=== PATIENT | male | born 1940 | race Caucasian/White ===

== ENCOUNTER 2017-02-19 10:36 | Day surgery (SDC) | payer MEDICARE ==
[~2017-02-19 10:36] MED LIST: BUPIVACAINE HCL 0.75% INJ/PF (7.5 MG/1 ML) 10 ML SDV OD PRN; KETOROLAC TROMETHAMINE 0.45% 4 DROP/0.4 ML DROPERETTE OD PRN; LIDOCAINE 4% INJ/PF (40 MG/ML) 5 ML AMPUL OD PRN
[2017-02-19] MEDS ORDERED: MIDAZOLAM 2 MG/2 ML INJ ONE (10:47)
[2017-02-19] MEDS: TETRACAINE HCL 0.5% OPH SOLN 0.6 ML DROPERETTE OD PRN ×2 (11:22→11:59)
[2017-02-19] MEDS: CYCLOPENTOLATE 0.2%/PHENYLEPHRINE 1% OPH SOLN 2 ML OD PRN ×3 (11:23→11:38)
[2017-02-19] MEDS: BESIFLOXACIN HCL 0.6% OPH SUSP 5 ML BOTTLE OD PRN ×4 (11:23→12:38)
[2017-02-19] MEDS: TROPICAMIDE 1% OPH SOLN 3 ML OD PRN ×3 (11:23→11:38)
[2017-02-19] MEDS ORDERED: EPINEPHRINE INJ/PF 1 MG/1 ML AMPULE ONE (11:54)
[2017-02-19] MEDS ORDERED: CHONDR SU A NA/HYALUR INTRAOC KIT (SURGICARE) ONE (11:54)
--- NOTE | 2017-02-19 13:08 | [facility] OPERATIVE REPORT E ---
[facility] Operative Report NAME: MABEL LOMBARDO AGE: 76Y DATE OF SURGERY: ROOM: PREOPERATIVE DIAGNOSES: 1. Cataract, right eye. 2. Astigmatism, right eye. POSTOPERATIVE DIAGNOSES: 1. Cataract, right eye. 2. Astigmatism, right eye. PROCEDURE PERFORMED: Phacoemulsification with toric intraocular lens implant, right eye. SURGEON: LISSA SHIN M.D. ANESTHESIA: Topical with monitored anesthesia care. INDICATIONS OF SURGERY: Difficulty reading road signs and glare at night. Best corrected visual acuity, 20/40. DESCRIPTION OF PROCEDURE: The patient was brought to the operating room and placed in the seated position. The 0, 180 and 270 axes of the eyes were marked using a marking level. The patient was placed in the reclining and topical anesthesia was administered. This consisted of a short white pledget soaked in a solution of 4% Xylocaine mixed with 0.75% Marcaine in a 1:1 ratio. A 2 x 1 cm pledget was placed in the superior fornix and a 1 x 1 cm pledget was placed in the inferior fornix. The eye was patched shut for 5 minutes. The patch and pledgets were removed. The eye was sterilely prepped and draped in the usual manner. Lid speculum was placed in the eye. Black silk 4-0 sutures were placed around the superior and the inferior rectus muscles to be used as traction. A conjunctival peritomy was made at the 135 degree axis. Hemostasis was obtained with bipolar cautery. A posterior limbal groove was created using a crescent knife and dissected anteriorly towards the cornea. A sharp point blade was used to create a paracentesis site at the 2 o'clock position. A 2.4 mm keratome was used to enter the anterior chamber through the groove. Viscoelastic was injected in the anterior chamber. An anterior capsulotomy was performed using Utrata forceps in a capsulorrhexis fashion. Hydrodissection and hydrodelineation were performed. Phacoemulsification was performed in a pyfhjr-pnp-sotpyed technique. A total of 50 seconds of total phaco time was used. The I/A unit was used to remove residual cortex. Viscoelastic was placed in the capsular bag. Using the previously marked site as reference, the 180 degree axis was marked on the eye. Intraocular lens Model [id number], 20.0 diopters, serial number [id number] was placed in the eye and rotated within 0 degrees of final axis. The I/A unit was used to removed residual viscoelastic. The lens was rotated to the 180 degree axis and centered nicely. The wound was seen to be watertight under high and low pressure, and no sutures were placed. The 4-0 black silk sutures and lid speculum were removed. The eye was shielded after Besivance drops were placed. The patient tolerated the procedure well and was sent to the recovery room in good condition. DICTATING PHYSICIAN: LISSA SHIN M.D. [id number] [id number] PHY#: [id number] ID: [id number] JOB#: [id number] ACCT: [id number] cc:LISSA SHIN M.D. > MTDD
--- NOTE | 2017-02-19 13:13 | [facility] DISCHARGE SUMMARY E ---
[facility] Discharge Summary NAME: MABEL LOMBARDO AGE: 76Y ADMITTED: 02/19/2017 DISCHARGED: 02/19/2017 FINAL DIAGNOSES: 1. Cataract, right eye. 2. Astigmatism, right eye. HOSPITAL COURSE: The patient is a 76-year-old gentleman who underwent uneventful cataract extraction with toric intraocular lens implant, right eye, on 02/19/17. DISPOSITION: The patient was discharged to home. DISCHARGE INSTRUCTIONS: He is instructed to resume preoperative medications, take Tylenol as needed for discomfort, to keep his eye shielded, to use Besivance, Durezol, and Ilevro at 3 p.m. and 8 p.m., and to follow up in my office in 1 day. DICTATING PHYSICIAN: LISSA SHIN M.D. 5011M 1305 PHY#: [id number] ID: [id number] JOB#: [id number] ACCT: [id number] cc:LISSA SHIN M.D. >
== END 2017-02-19 13:25 | disposition home or self-care (01) ==
LOC: SC 10:36
PROVIDERS: ATTEND Ophthalmology
PROC: 08RJ3JZ Replacement of Right Lens with Synthetic Substitute, Percutaneous Approach (ICD-10-PCS; principal; 2017-02-19 12:00)
DX: H25.811 Combined forms of age-related cataract, right eye (principal); H02.132 Senile ectropion of right lower eyelid; H02.135 Senile ectropion of left lower eyelid; H52.201 Unspecified astigmatism, right eye; H35.3131 Nonexudative age-related macular degeneration, bilateral, early dry stage; H35.372 Puckering of macula, left eye; H52.4 Presbyopia; E11.9 Type 2 diabetes mellitus without complications; I10 Essential (primary) hypertension; E78.00 Pure hypercholesterolemia, unspecified; Z87.891 Personal history of nicotine dependence; Z79.899 Other long term (current) drug therapy; Z79.84 Long term (current) use of oral hypoglycemic drugs
CPT/HCPCS: 66984; 82962; V2787; J2250; J3490 ×3; A9270; J0171; 142

== ENCOUNTER 2017-03-19 08:44 | Day surgery (SDC) | payer MEDICARE ==
[~2017-03-19 08:44] MED LIST changes: -BUPIVACAINE HCL 0.75% INJ/PF (7.5 MG/1 ML) 10 ML SDV OD PRN; +BUPIVACAINE HCL 0.75% INJ/PF (7.5 MG/1 ML) 10 ML SDV OS PRN; +CHONDR SU A NA/HYALUR INTRAOC KIT (SURGICARE) ONE; +EPINEPHRINE INJ/PF 1 MG/1 ML AMPULE ONE; -KETOROLAC TROMETHAMINE 0.45% 4 DROP/0.4 ML DROPERETTE OD PRN; +KETOROLAC TROMETHAMINE 0.45% 4 DROP/0.4 ML DROPERETTE OS PRN; -LIDOCAINE 4% INJ/PF (40 MG/ML) 5 ML AMPUL OD PRN; +LIDOCAINE 4% INJ/PF (40 MG/ML) 5 ML AMPUL OS PRN; +MIDAZOLAM 2 MG/2 ML INJ ONE
[2017-03-19] MEDS: TROPICAMIDE 1% OPH SOLN 3 ML OS PRN ×3 (09:04→09:39)
[2017-03-19] MEDS: CYCLOPENTOLATE 0.2%/PHENYLEPHRINE 1% OPH SOLN 2 ML OS PRN ×3 (09:04→09:39)
[2017-03-19] MEDS: BESIFLOXACIN HCL 0.6% OPH SUSP 5 ML BOTTLE OS PRN ×4 (09:05→10:29)
[2017-03-19] MEDS: TETRACAINE HCL 0.5% OPH SOLN 0.6 ML DROPERETTE OS PRN ×2 (09:06→09:39)
--- NOTE | 2017-03-19 11:03 | [facility] OPERATIVE REPORT E ---
[facility] Operative Report NAME: MABEL LOMBARDO AGE: 76Y DATE OF SURGERY: ROOM: [facility] Operative Report PREOPERATIVE DIAGNOSIS: CATARACT, LEFT EYE. POSTOPERATIVE DIAGNOSIS: CATARACT, LEFT EYE. PROCEDURE PERFORMED: TORIC INTRAOCULAR LENS IMPLANT, LEFT EYE. SURGEON: LISSA SHIN MD ANESTHESIA: TOPICAL WITH MAC. INDICATIONS FOR SURGERY: Difficulty reading road signs and glare at night. Best corrected visual acuity, 20/30. PROCEDURE: Prior to the onset of the surgery, patient was placed in a sitting position, and a 0, 270, and 180-degree axis was marked on the eye. Following tetravisc drops, topical anesthesia was administered. This consisted of instrument wipe pledgets soaked in a solution of 4% Xylocaine mixed with 0.75% Marcaine in a 1:2 ratio. A 2 x 1 cm pledget was placed in the superior fornix. A 1 x 1 cm pledget was placed in the inferior fornix. The eye was patched shut for 5 minutes. The patch was removed. The eye was sterilely prepped and draped in the usual manner. Lid speculum was placed in the eye. The pledgets were removed. 4-0 black silk sutures were placed around the superior and the inferior rectus muscles to be used as traction. A conjunctival peritomy was made at the 10 o'clock position. Hemostasis was obtained with bipolar cautery. A posterior limbal groove was created using a crescent knife and dissected anteriorly towards the cornea. A sharp point blade was used to create a paracentesis site at the 2 o'clock position. A 2.4 mm keratome was used to enter the anterior chamber through the groove. Viscoelastic was injected into the anterior chamber. An anterior capsulotomy was performed using Utrata forceps in a capsulorrhexis fashion. Hydrodissection and hydrodelineation were performed. Phacoemulsification was performed in tqnjtu-uiz-kxrotkb technique. A total of 49 seconds phaco time was used. Following this, the I/A unit was used to remove residual cortex. Viscoelastic was injected into the capsular bag. Intraocular lens model [id number], 20.0 diopters, serial number [id number] was placed in the capsular bag. The lens implant was placed at the 5-degree axis after insertion of the lens using the previous marked sites as reference. The I/A unit was used to remove residual viscoelastic. The wound was seen to be watertight under high and low pressure, and no sutures were placed. The intraocular lens was well centered. The pressure was adjusted in the eye to normal pressure. The 4-0 black silk sutures and lid speculum were removed. The eye was shielded after Besivance drops were placed. The patient tolerated the procedure well and was sent to the Recovery Room in good condition. DICTATING PHYSICIAN: LISSA SHIN M.D. DICTATING PHYSICIAN: LISSA SHIN M.D. 5011M [id number] PHY#: [id number] ID: [id number] JOB#: [id number] ACCT: [id number] cc:LISSA SHIN M.D. > MTDD
--- NOTE | 2017-03-19 11:09 | [facility] DISCHARGE SUMMARY E ---
[facility] Discharge Summary NAME: MABEL LOMBARDO AGE: 76Y ADMITTED: 03/19/2017 DISCHARGED: 03/19/2017 FINAL DIAGNOSIS: Cataract, left eye. HOSPITAL COURSE: The patient is a 76-year-old gentleman who underwent uneventful cataract extraction with toric intraocular lens implant, left eye, on 03/19/17. DISPOSITION: The patient was discharged to home. DISCHARGE INSTRUCTIONS: He is instructed to resume preoperative medications, take Tylenol as needed for discomfort, to keep his eye shielded, to use Besivance, Durezol, and Ilevro at 3 p.m. and 8 p.m., and to follow up in my office in 1 day. DICTATING PHYSICIAN: LISSA SHIN M.D. 5011M 1102 PHY#: [id number] ID: [id number] JOB#: [id number] ACCT: [id number] cc:LISSA SHIN M.D. >
== END 2017-03-19 11:01 | disposition home or self-care (01) ==
LOC: SC 08:44
PROVIDERS: ATTEND Ophthalmology
PROC: 08RK3JZ Replacement of Left Lens with Synthetic Substitute, Percutaneous Approach (ICD-10-PCS; principal; 2017-03-19 10:00)
DX: H25.812 Combined forms of age-related cataract, left eye (principal); Z96.1 Presence of intraocular lens; I10 Essential (primary) hypertension; M19.90 Unspecified osteoarthritis, unspecified site; E11.9 Type 2 diabetes mellitus without complications; Z79.899 Other long term (current) drug therapy; Z79.1 Long term (current) use of non-steroidal anti-inflammatories (NSAID); Z79.4 Long term (current) use of insulin
CPT/HCPCS: 82962; 66984; V2787; J2250; J3490 ×3; A9270; J0171; 142

== ENCOUNTER → 2019-11-19 | Outpatient (CLI) | payer MEDICARE ==
--- NOTE | 2019-11-19 16:06 | RADIOLOGY REPORT (SQ) ---
EXAM DESCRIPTION: CAROTID DOPPLER COMPLETED DATE/TIME: 11/19/2019 2:45 pm REASON FOR STUDY: VISUAL DISTURBANCES H53.8 OTHER VISUAL DISTURBANCES COMPARISON: None. TECHNIQUE: Grayscale ultrasound, Doppler velocity and spectra, and color Doppler images acquired of the extra-cranial carotid and vertebral arteries. Images stored on PACS. LIMITATIONS: None. FINDINGS: RIGHT CAROTID CCA Velocities: Within normal limits. ICA Velocities Peak systolic 1.62 m/s. End diastolic 0.47 m/s. Proximal ICA/CCA peak systolic ratio 2.5. Moderate plaque proximal ICA. LEFT CAROTID CCA Velocities: Within normal limits. ICA Velocities Peak systolic 1.30 m/s. End diastolic 0.55 m/s. Proximal ICA/CCA peak systolic ratio 2.0. Moderate plaque bulb and proximal ICA. VERTEBRAL ARTERIES: Antegrade flow. Normal waveforms. SUBCLAVIAN ARTERIES: No finding. OTHER: No other significant finding. 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 COMMENT: Quality ID #[id number]: Velocity criteria are extrapolated from the diameter data as defined by t he Society of Radiologists in Ultrasound Consensus Conference. Radiology 2003: 229; 340-346. TECHNICAL DOCUMENTATION: JOB ID: [id number] 2010 [employer]- All Rights Reserved Reading location - IP/workstation name: [email or web address]
== END ==
LOC: SP 09:20
PROVIDERS: ATTEND Ophthalmology
DX: H53.8 Other visual disturbances (principal)
CPT/HCPCS: 93880